=== PATIENT | female | born 2000 | race African-American/Black ===

== ENCOUNTER 2022-12-13 05:30 | Inpatient (IN) | payer OTHER ==
[2022-12-13] MEDS ORDERED: Bupivacaine PF 0.5% 30 ML VIAL ONE (14:20)
[2022-12-13] MEDS ORDERED: Lidocaine 2% PF 5 ML VIAL ONE (14:20)
[2022-12-13] MEDS ORDERED: Diphenoxylate HCl/Atropine Tablet PO PRN (20:28)
[2022-12-13] MEDS ORDERED: HYDROcodone/Acetaminophen 5/325 mg Tablet PO PRN (20:28)
[2022-12-13] MEDS ORDERED: Promethazine HCl 25 MG/ML VIAL IM PRN (20:28)
[2022-12-13] MEDS ORDERED: Acetaminophen 500 MG TAB PO PRN (20:28)
[2022-12-13] MEDS ORDERED: Misoprostol 200 MCG TAB PR PRN (20:28)
[2022-12-13] MEDS ORDERED: Carboprost 250 MCG/ML AMP IM PRN (20:28)
[2022-12-13] MEDS ORDERED: Methylergonovine 0.2 MG/ML VIAL IM PRN (20:28)
[2022-12-13] MEDS ORDERED: Ibuprofen 800 MG TAB PO PRN (20:28)
[2022-12-13] MEDS ORDERED: hydrALAZINE 20 MG/ML VIAL SLOW IVP PRN (20:28)
[2022-12-13] MEDS ORDERED: Lidocaine 1% (PF) 30 ML VIAL SC PRN (20:28)
[2022-12-13] MEDS ORDERED: Ondansetron PF 4 MG/2 ML Vial IVP PRN (20:28)
[2022-12-13] MEDS ORDERED: NS w/ Oxytocin 30 units 500 ML IV SCH ×2 (20:28)
[2022-12-13] MEDS: Lactated Ringer's 1,000 ML IV SCH (20:30)
[2022-12-13 20:44] VITALS: BMI 27.1
[2022-12-13 21:17] LABS: Mean Corpuscular HGB CONC 33.7 g/dL (32.0-36.0); Mean Corpuscular Hemoglobin 28.9 pg (27.0-33.0); Mean Corpuscular Volume 85.8 fl (81.6-98.3); Mean Platelet Volume 10.8 fl (7.4-10.4); Platelet Count 232 10x3/uL (150-450); RBC Distribution Width 13.6 % (11.5-14.5); Red Blood Cell (RBC) Count 3.46 10x6/uL (3.90-5.03); White Blood Cell (WBC) Count 7.7 10x3/uL (3.5-10.5)
[2022-12-13 21:51] LABS: SARS-CoV-2 NAA Rapid Test Not Detected (NotDetected)
[2022-12-13 23:00] LABS: Syphilis Antibody Nonreactive (Nonreactive); Syphilis Antibody Index 0.04 S/CO (<1.00 Non-Reactive)
[2022-12-13 23:01] LABS: HBSAg Index 0.14 S/CO (0-0.99); Hep B Surf Ag Non-Reactive S/CO (NonReactive)
[2022-12-14] MEDS: Misoprostol 100 MCG TAB VAG SCH ×2 (04:09→15:08)
[2022-12-14] MEDS: Lactated Ringer's 1,000 ML IV SCH ×3 (04:10→23:04)
[2022-12-14] MEDS: Butorphanol Tartrate 1 MG/ML VIAL SLOW IVP PRN ×2 (09:12→12:12)
[2022-12-14] MEDS ORDERED: Fentanyl 2 mcg/Bup 0.1% Cadd 100 ML ONE (13:51)
[2022-12-14] MEDS ORDERED: Acetaminophen 325 MG TAB PO PRN (14:34)
[2022-12-14] MEDS ORDERED: ePHEDrine Sulfate 50 MG/10 ML VIAL SLOW IVP PRN (14:34)
[2022-12-14] MEDS ORDERED: Lactated Ringer's 500 ML IV PRN (14:34)
[2022-12-14] MEDS ORDERED: Naloxone HCl 0.4 mg/ml Vial IVP PRN ×2 (14:34)
[2022-12-14] MEDS ORDERED: Promethazine HCl 25 MG/ML VIAL IM PRN ×2 (14:34→23:01)
[2022-12-14] MEDS ORDERED: Moisturizing Cream (Eucerin) 113 GM JAR TOP PRN (14:34)
[2022-12-14] MEDS ORDERED: Ondansetron PF 4 MG/2 ML Vial IVP PRN ×2 (14:34→23:01)
[2022-12-14] MEDS ORDERED: diphenhydrAMINE 50 MG/ML VIAL IVP PRN (14:34)
[2022-12-14] MEDS ORDERED: Fentanyl 2 mcg/Bupivacaine 0.1% Cassette 100 ML EPIDURAL SCH (14:45)
[2022-12-14] MEDS ORDERED: Communication Order-Pharmacy FS SCH (14:45)
[2022-12-14] MEDS ORDERED: diphenhydrAMINE 25 MG CAP PO PRN (23:01)
[2022-12-14] MEDS ORDERED: hydrALAZINE 20 MG/ML VIAL SLOW IVP PRN (23:01)
[2022-12-14] MEDS ORDERED: NS w/ Oxytocin 30 units 500 ML IV SCH (23:01)
[2022-12-14] MEDS ORDERED: Lanolin Ointment 7 GM TUBE TOP PRN (23:01)
[2022-12-14] MEDS ORDERED: Milk Of Magnesia 30 ML UDCUP PO PRN (23:01)
[2022-12-14] MEDS ORDERED: Benzocaine-Menthol 82.5 ML CAN TOP PRN (23:01)
[2022-12-14] MEDS ORDERED: Bisacodyl 10 MG SUPP PR PRN (23:01)
[2022-12-14] MEDS ORDERED: Boostrix 0.5 ML (Tdap) VIAL (>/=7 yrs of age) IM ONE (23:01)
[2022-12-14] MEDS ORDERED: HYDROcodone/Acetaminophen 5/325 mg Tablet PO PRN (23:01)
[2022-12-14] MEDS ORDERED: Docusate 100 MG CAP PO SCH (23:15)
[2022-12-14] MEDS ORDERED: Ibuprofen 800 MG TAB PO SCH (23:15)
[2022-12-15] MEDS: HYDROcodone/Acetaminophen 5/325 mg Tablet PO PRN ×2 (02:08→08:17)
[2022-12-15] MEDS: Ibuprofen 800 MG TAB PO SCH ×3 (06:10→21:55)
[2022-12-15] MEDS: Ferrous Sulfate 325 MG TAB PO SCH ×2 (07:23→14:37)
[2022-12-15] MEDS: Docusate 100 MG CAP PO SCH ×2 (08:17→21:55)
[2022-12-15] MEDS: Prenatal Vitamin 1 TAB PO SCH (08:17)
[2022-12-16] MEDS: Ibuprofen 800 MG TAB PO SCH ×2 (04:56→13:48)
[2022-12-16] MEDS: Ferrous Sulfate 325 MG TAB PO SCH (08:18)
[2022-12-16 08:30] VITALS: BP 123/75; TEMP 98.9
[2022-12-16] MEDS: Docusate 100 MG CAP PO SCH (08:40)
[2022-12-16] MEDS: Prenatal Vitamin 1 TAB PO SCH (08:40)
== END 2022-12-16 14:45 | disposition home or self-care (01) | DRG 807 ==
LOC: CSHLD 20:25 → CSHPP 12-14 22:50
PROVIDERS: ADMIT Family Medicine; ATTEND Family Medicine
PROC: 10E0XZZ Delivery of Products of Conception, External Approach (ICD-10-PCS; principal; 2022-12-14)
PROC: 10907ZC Drainage of Amniotic Fluid, Therapeutic from Products of Conception, Via Natural or Artificial Opening (ICD-10-PCS; 2022-12-14)
PROC: 3E0P7VZ Introduction of Hormone into Female Reproductive, Via Natural or Artificial Opening (ICD-10-PCS; 2022-12-14)
PROC: 0UQMXZZ Repair Vulva, External Approach (ICD-10-PCS; 2022-12-14)
DX: O71.82 Other specified trauma to perineum and vulva (principal); Z37.0 Single live birth; Z3A.40 40 weeks gestation of pregnancy; Z79.899 Other long term (current) drug therapy; Z20.822 Contact with and (suspected) exposure to COVID-19; Z90.89 Acquired absence of other organs
CPT/HCPCS: 36415; 51702; 85027; 86780; 86850; 86900; 86901; 87340; J0595; J2001; J2405; J2590; J7120; S0020; U0002